=== PATIENT | male | born 1965 | race Caucasian/White ===

== ENCOUNTER 2024-05-01 07:58 | Emergency (ER) | payer OTHER, SELFPAY ==
--- NOTE | 2024-05-01 | ECG_ITS ---
Test Reason : chest pain Blood Pressure : / mmHG Vent. Rate : 088 BPM Atrial Rate : 088 BPM P-R Int : 152 ms QRS Dur : 100 ms QT Int : 350 ms P-R-T Axes : 066 015 027 degrees QTc Int : 423 ms Normal sinus rhythm Normal ECG No previous ECGs available Referred By: Generic ED Physician Electronically Signed By:FREDY TAYLOR MD
--- NOTE | ~2024-05-01 | XR_ITS ---
EXAMINATION: XR CHEST CLINICAL INFORMATION: Chest pain COMPARISON: None available. TECHNIQUE: Frontal view of the chest was obtained. FINDINGS: Focal consolidation. No pneumothorax. Trachea is midline. Cardiac mediastinal silhouette is not enlarged. No large pleural effusion. Osseous structures are intact. Soft tissues are unremarkable. XR/XR chest 1V IMPRESSION: No acute cardiopulmonary process.
[2024-05-01 08:08] VITALS: PULSE 90; RESP 18; O2SAT 94; BMI 17.7
--- NOTE | 2024-05-01 08:15 | ED_ITS ---
HPI - Chest Pain General Chief Complaint: Chest Pain Stated Complaint: Chest Pains Time Seen by Provider: 05/01/24 08:04 Source: patient and family Mode of arrival: ambulatory Limitations: no limitations History of Present Illness ED Provider: JACIEL AKERS narrative: 58 yo male with PMH of asthma and GERD not on daily aspirin has no known history of CAD or family hx of aortic dissection in the past. He has not traveled or had any procedures. No recent chest pain or exertion, no symptoms golfing all day yesterday. Drank a lot of ETOH yesterday and went to bed. Woke up at 3am nauseated with aching L sided chest pain and felt sweaty. He notes it has improved. He has had chest pain before but took TUMs and it went away. He denies any recent illness. On arrival L arm BP 167/82 R arm BP 167/84 complaint: chest pain Onset (ago): hour(s) (3am today) Timing of current episode: other (improved) Prior episodes: Yes Onset: during rest Pain location: left chest Pain radiation: none Severity: moderate Quality: aching Relieving factors: nothing Exacerbating factors: nothing Associated symptoms: nausea and diaphoresis Treatment prior to arrival: none Related Data Allergies Allergy/AdvReac Type Severity Reaction Status Date / Time Penicillins Allergy Intermediate Hives Verified 05/01/24 08:08 Review of Systems 2 Review of Systems: Constitutional : No Weight loss, No Fever, No Chills, pos sweats ENT/Mouth : No sore throat, No Rhinorrhea Eyes: No Eye Pain, No Swelling Cardiovascular : pos Chest Pain, no SOB, no Dyspnea on Exertion, No Orthopnea, No Edema, No Palpitations Respiratory : No Cough, No Sputum Gastrointestinal : pos Nausea, No Vomiting, No Diarrhea, No abdominal Pain, No Hematochezia, No Melena Genitourinary : No Dysuria, No Urinary Frequency Musculoskeletal : No joint pain, No Myalgias, No Joint Swelling Skin : No Skin Lesions, No rash Neuro : No Weakness, No Numbness, No Dizziness, No Headache Psych : No Anxiety/Panic, No Depression All other systems reviewed and are negative [facility] Past Medical History Attestation statement: The following information was validated with the patient. Medical History GERD (gastroesophageal reflux disease) Asthma Social History Social History Alcohol intake: current Alcohol intake frequency: 3 or more drinks per day Patient Tobacco Use Status: Never used Tobacco Smoked in Last 30 Days: No Use of substances other than those prescribed or required for medical reasons: No Advance Directives: No Advance Directives Information Provided: Yes Physical Exam 2 Vital Signs: Vital Signs: Last Vital Signs Pulse 90 05/01/24 08:08 Resp 18 05/01/24 08:08 Pulse Ox 94 05/01/24 08:08 O2 Del Method Room Air 05/01/24 08:08 BMI result Body Mass Index 17.7 Appearance: Alert. Oriented X3. No acute distress. Eyes: Pupils equal, round and reactive to light. ENT: Pharynx normal. Neck: Normal inspection. Neck supple. CVS: Normal heart rate and rhythm. Pulses normal. Respiratory: No respiratory distress. Breath sounds normal. Abdomen: Soft and nontender. Skin: Skin warm and dry. Normal skin color. Normal skin turgor. Extremities: No lower extremity edema. No calf ttp Neuro: Oriented X 3. No motor deficit. No sensory deficit. Medications Administered Discontinued Medications Generic Name Dose Route Start Last Admin Trade Name Freq PRN Reason Stop Dose Admin Al Hydroxide/Mg Hydroxide 15 ml 05/01/24 08:14 05/01/24 08:27 Magnesium Hydrox/Alum Hydrox 30 Ml Oral.Susp PO 05/01/24 08:15 15 ml ONCE ONE Administration Lidocaine HCl 15 ml 05/01/24 08:14 05/01/24 08:27 Lidocaine Hcl Viscous 2 % 15 Ml Solution MUCOUS MEM 05/01/24 08:15 15 ml ONCE ONE Administration Medical Decision Making Medical Decision Making MDM Narrative: 58 yo male with PMH of asthma and GERD here with c/o chest pain nausea and sweats waking him at 3am at this time no known hx or risk factors for ACS, BP symmetric no radiation to the back and pain improved not consistent with dissection, no signs of DVT no hypoxic or tachycardia doubt VTE but will add on ddimer given 94% on RA. He did drink a lot of ETOH yesterday could be pancreatic or biliary - labs sent off. GI cocktail ordered. Differential Diagnosis Differential Diagnoses: The differential diagnosis associated with the presentation includes chest pain, atypical chest pain, ACS has no tachycardia hypoxia risk factors for VTE or signs of DVT doubt VTE BP symmetric in both arms no hx of HTN and pain does not sound typical of dissection doubt dissecion Admission/Observation Consideration of admission/observation: Escalation of care including admission/observation considered negative workup trop flat x 2, EKG Negative CXR negative BP symmetric pain free Lab Data [facility] Lab Attestation statement: I reviewed the patient's lab results. age adjusted ddimer 290 VTE unlikely 05/01/24 08:25 05/01/24 08:25 Labs: Lab Results 05/01/24 05/01/24 Range/Units 08:25 10:58 WBC 11.9 H (4.8-10.8) X10*3/uL RBC 4.75 (4.60-5.80) X10*6/uL Hgb 14.6 (14.0-18.0) g/dl Hct 41.1 L (42.0-52.0) % MCV 86.5 (80.0-98.0) fL MCH 30.7 (27.0-33.0) pg MCHC 35.5 (31.0-36.0) g/dl RDW 12.3 (11.0-16.0) % Plt Count 205 (160-400) X10*3/uL MPV 8.8 L (9.4-12.4) fL Immature Gran % (Auto) 0.5 H (0.0-0.4) % Neut % (Auto) 85.9 H (45-73) % Lymph % (Auto) 8.4 L (20-40) % [place] % (Auto) 4.3 (2-11) % Eos % (Auto) 0.5 (0-4) % Baso % (Auto) 0.4 (0-2) % Lymph # (Auto) 1.0 L (1.2-4.9) X10*3/uL [place] # (Auto) 0.5 (0.1-1.2) X10*3/uL Eos # (Auto) 0.1 (0.0-0.4) X10*3/uL Baso # (Auto) 0.1 (0.0-0.2) X10*3/uL Abs Immat Gran (auto) 0.06 H (0.00-0.03) X10*3/uL Absolute Neuts (auto) 10.3 H (2.0-8.3) x10*3/uL Absolute Nucleated RBC 0.000 (0.0-0.012) X10*3/uL Nucleated RBC % (auto) 0.0 (0.0-0.2) /100WBC PT 12.2 (11.1-13.3) SEC INR 1.0 (0.9-1.1) D-Dimer High Sensitivty 254 NG/ML Sodium 139 (135-145) mmol/L Potassium 4.3 (3.3-5.1) mmol/L Chloride 107 (96-108) mmol/L Carbon Dioxide 23 (22-29) mmol/L Anion Gap 13 (12-20) BUN 18 H (9-16) mg/dL Creatinine 0.74 (0.5-1.4) mg/dL Estim Creat Clear Calc 88.4 Estimated GFR > 60 Random Glucose 103 (60-115) mg/dL Calcium 10.6 H (8.4-10.2) mg/dL Total Bilirubin 0.3 (0.0-1.0) mg/dL AST 30 (5-37) U/L ALT 44 H (0-40) U/L Alkaline Phosphatase 65 (39-117) U/L Troponin I High Sens < 2.7 < 2.7 (<3.5-35.0) ng/L B-Natriuretic Peptide < 10 (<100) pg/mL Total Protein 7.9 (6.5-8.0) g/dL Albumin 4.4 (3.5-5.0) g/dL Lipase 21 (8-78) U/L Independent Interpretation I performed an independent interpretation of an: EKG and Plain X-Ray (normal) Interpretation: Rate: 88 Rhythm: NSR [place]: left Normal P waves. Normal LAURIE. Normal QRS complex. ST T wave : normal no IGNACIO, inverted t wave III qTC: 423 prior studies: no acute ischemia The study has been interpreted contemporaneously by me. . Radiology Impression Discussion of test interpretation with radiology: I have reviewed the radiologist's reading. Independent Historian Clinical information obtained from an independent historian. History obtained from or confirmed by: Other (family) Discharge Plan Discharge Clinical Impression: Chest pain Qualifiers: Chest pain type: precordial pain Qualified Code(s): R07.2 - Precordial pain Patient Disposition: Home, Self-Care Instructions: Chest Pain (ED) Additional Instructions: test for blood clot negative two heart tests negative Chest xray negative EKG no acute ischemia you need to talk to your doctor about outpatient stress test return for any worsening symptoms or concerns Referrals: Kranthi Rock MD [Physician] - (call to work up outpatient stress test) Print Language: [place]ian
[2024-05-01] MEDS: Lidocaine HCl Viscous 2 % 15 ML SOLUTION MUCOUS MEM (08:27)
[2024-05-01] MEDS: Magnesium Hydrox/Alum Hydrox 30 ML ORAL.SUSP 15 ML PO (08:27)
[2024-05-01 08:29] LABS: MANUAL DIFF FLAG NO
[2024-05-01 08:30] LABS: Basophils Absolute Auto 0.1 X10*3/uL (0.0-0.2); Basophils Percent Auto 0.4 % (0-2); Eosinophils Absolute Auto 0.1 X10*3/uL (0.0-0.4); Eosinophils Percent Auto 0.5 % (0-4); Hematocrit 41.1 % (42.0-52.0); Hemoglobin 14.6 g/dl (14.0-18.0); Imm Gran Abs Auto 0.06 X10*3/uL (0.00-0.03); Imm Gran Pct Auto 0.5 % (0.0-0.4); Lymphocytes Percent Auto 8.4 % (20-40); Mean Corpuscular HGB Conc 35.5 g/dl (31.0-36.0); Mean Corpuscular Hemoglobin 30.7 pg (27.0-33.0); Mean Corpuscular Volume 86.5 fL (80.0-98.0); Mean Platelet Volume 8.8 fL (9.4-12.4); Monocytes Absolute Auto 0.5 X10*3/uL (0.1-1.2); Monocytes Percent Auto 4.3 % (2-11); Neutrophils Absolute Auto 10.3 x10*3/uL (2.0-8.3); Neutrophils Percent Auto 85.9 % (45-73); Platelet Count 205 X10*3/uL (160-400); Red Blood Count 4.75 X10*6/uL (4.60-5.80); Red Cell Distribution Width 12.3 % (11.0-16.0); White Blood Count 11.9 X10*3/uL (4.8-10.8)
[2024-05-01 08:36] LABS: Prothrombin Time 12.2 SEC (11.1-13.3)
--- NOTE | 2024-05-01 08:38 | PC.NURSE ---
Patient from home accompanied by daughter with complaints of left sided chest pain that started around 3am this morning. Patient denies trauma or heavy lifting. States he played golf yesterday and did drink quiet a bit last night. Reports hx of gerd. Reports drinking about 5 drinks daily. Per patient pain has improved since 3am. VSS
[2024-05-01 08:54] LABS: D Dimer High Sensitivity 254 NG/ML
[2024-05-01 08:55] LABS: Lipase 21 U/L (8-78)
[2024-05-01 08:57] LABS: B Type Natriuretic Peptide < 10 pg/mL (<100)
[2024-05-01 08:59] LABS: Alanine Aminotransferase 44 U/L (0-40); Albumin Level 4.4 g/dL (3.5-5.0); Alkaline Phosphatase 65 U/L (39-117); Anion Gap 13 (12-20); Aspartate Amino Transferase 30 U/L (5-37); Bilirubin Total 0.3 mg/dL (0.0-1.0); Blood Urea Nitrogen 18 mg/dL (9-16); Calcium 10.6 mg/dL (8.4-10.2); Carbon Dioxide 23 mmol/L (22-29); Chloride 107 mmol/L (96-108); Creatinine Clr Calc Pharmacy 88.4; Estimated Glomerular Filt Rate > 60; Glucose Random 103 mg/dL (60-115); Potassium 4.3 mmol/L (3.3-5.1); Sodium 139 mmol/L (135-145); Total Protein 7.9 g/dL (6.5-8.0)
[2024-05-01 09:31] LABS: Troponin-I High Sensitivity < 2.7 ng/L (<3.5-35.0)
[2024-05-01 11:30] LABS: Troponin-I High Sensitivity < 2.7 ng/L (<3.5-35.0)
[2024-05-01 12:18] VITALS: BP 138/75; PULSE 96; RESP 17; TEMP 36.8; O2SAT 95
== END 2024-05-01 12:19 | disposition home or self-care (01) ==
PROVIDERS: Emergency Provider Emergency Medicine; PCP Pediatrics
DX: R07.2 Precordial pain (principal); K21.9 Gastro-esophageal reflux disease without esophagitis; J45.909 Unspecified asthma, uncomplicated; Z79.82 Long term (current) use of aspirin
CPT/HCPCS: 36415; 71045; 80053; 83690; 83880; 84484; 85025; 85379; 85610; 93005; 99284

== ENCOUNTER → 2024-05-01 07:58 | Outpatient (BNV) | payer OTHER, SELFPAY | PROVIDERS: Emergency Provider Emergency Medicine; PCP Pediatrics; Visit Provider Internal Medicine Cardiovascular Disease | DX: R07.9 Chest pain, unspecified (principal) | CPT/HCPCS: 93010 ==